=== PATIENT | female | born 1975 | race Caucasian/White ===

== ENCOUNTER 2018-07-22 08:29 | Day surgery (SDC) | payer BC ==
[~2018-07-22] VITALS: Ht 167.6 cm; Wt 60.6 kg
[~2018-07-22 08:29] MED LIST: BUPIVACAINE/PF 0.5% ONE; LIDOCAINE 1%, 20ML ONE; No meds per pt.
[2018-07-22] MEDS ORDERED: LACTATED RINGERS 1,000 ML IV SCH (08:50)
[2018-07-22 09:09] VITALS: BP 134/80
[2018-07-22] MEDS ORDERED: APREPITANT 40 MG CAPSULE ONE ×2 (10:40→10:52)
[2018-07-22] MEDS ORDERED: MIDAZOLAM 1 MG/ML, 2ML ONE ×2 (10:40→10:52)
[2018-07-22] MEDS ORDERED: FENTANYL PF 250 MCG/5ML ONE (10:46)
[2018-07-22] MEDS ORDERED: DEXAMETHASONE 4 MG/ML, 1ML ONE (10:52)
[2018-07-22] MEDS ORDERED: KETOROLAC 30 MG/1 ML ONE (10:52)
[2018-07-22] MEDS ORDERED: ONDANSETRON 2MG/ML, 2ML ONE (10:52)
[2018-07-22] MEDS ORDERED: CEFAZOLIN 1,000 MG ONE (10:52)
[2018-07-22] MEDS ORDERED: PROPOFOL 50 ML ONE (10:56)
[2018-07-22] MEDS ORDERED: HYDROmorphone 2 MG/ML, 1ML IVPush PRN (11:30)
[2018-07-22] MEDS ORDERED: HALOPERIDOL 5 MG/ML IV PRN (11:30)
[2018-07-22] MEDS ORDERED: MEPERIDINE/PF 25MG/0.5ML IVPush PRN (11:30)
[2018-07-22] MEDS ORDERED: OXYcodone 5 MG/5 ML ORAL.SOL UDC PO PRN (11:30)
[2018-07-22] MEDS ORDERED: ACETAMINOPHEN 325 MG TABLET PO PRN (11:30)
[2018-07-22] MEDS ORDERED: FENTANYL PF 100 MCG/2ML IV PRN (11:30)
[2018-07-22] MEDS ORDERED: PROMETHAZINE 25 MG/ML, 1ML IV PRN (11:30)
== END 2018-07-22 13:10 | disposition home or self-care (01) ==
LOC: OUT 08:29
PROVIDERS: ATTEND Orthopaedic Surgery
DX: T84.84XA Pain due to internal orthopedic prosthetic devices, implants and grafts, initial encounter (principal); Z72.89 Other problems related to lifestyle; Z91.018 Allergy to other foods; Z88.8 Allergy status to other drugs, medicaments and biological substances; Z98.890 Other specified postprocedural states; Y83.8 Other surgical procedures as the cause of abnormal reaction of the patient, or of later complication, without mention of misadventure at the time of the procedure
CPT/HCPCS: 20680; J0690; J1100; J1885; J2250; J2405; J2704; J3010; J8501